=== PATIENT | female | born 1955 | race Caucasian/White ===

== ENCOUNTER 2020-01-08 07:42 | Day surgery (SDC) | payer OTHER ==
[2020-01-01 15:10] VITALS: BMI 36.8
[2020-01-08] MEDS ORDERED: BUPIVACAINE HCL/PF 0.5% (5MG/ML) 10 ML VIAL ONE (08:38)
[2020-01-08] MEDS ORDERED: LIDOCAINE HCL/PF 2% SDV 5ML VIAL ONE ×2 (08:38→08:42)
[2020-01-08] MEDS ORDERED: EPINEPHrine/PF 1 MG/1 ML (1:1,000) AMPULE ONE (08:38)
[2020-01-08] MEDS ORDERED: MIDAZOLAM HCL 2 MG/2 ML SINGLE DOSE VIAL ONE (08:41)
[2020-01-08] MEDS ORDERED: PROPOFOL 20 ML ONE (08:41)
[2020-01-08] MEDS ORDERED: ceFAZolin SODIUM 1 GM VIAL ONE (08:42)
[2020-01-08] MEDS ORDERED: ONDANSETRON 4 MG/2 ML VIAL ONE (08:42)
[2020-01-08] MEDS ORDERED: DEXAMETHASONE SOD PHOSPHATE 4 MG/1 ML VIAL ONE (08:42)
[2020-01-08] MEDS ORDERED: KETOROLAC TROMETHAMINE 30 MG/1 ML VIAL ONE (08:42)
[2020-01-08] MEDS ORDERED: ACETAMINOPHEN WITH CODEINE 300MG/30MG TABLET PO PRN (09:55)
[2020-01-08 12:23] VITALS: TEMP 97.6
[2020-01-08 12:56] VITALS: BP 132/74; PULSE 77
--- NOTE | 2020-01-08 16:17 | OP ---
DATE OF OPERATION: 01/08/2020 SURGEON: Brody Marquis DPM RN APPEALS: Jared Reyes DPM PREOPERATIVE DIAGNOSIS: Hammertoes left 2nd and 5th toes. POSTOPERATIVE DIAGNOSIS: Hammertoes left 2nd and 5th toes. PROCEDURE: Arthroplasty to the left 2nd and 5th toes. OPERATION IN DETAIL: The patient was taken to the operating room, placed on the operating table in the supine position. The usual aseptic prepping and draping were performed. No tourniquet was utilized during the case. For conciseness only 1 toe will be dictated since the same procedure was done on both digits. Attention was directed to the dorsum of the 5th toe where 2 small semielliptical incisions were placed to excise a small wedge of skin. The medial and lateral collateral ligaments were then incised. The tendon was cut in a transverse manner, the extensor tendon, and the head was delivered dorsally into the interspace of the left surgical neck. An arthroplasty removing the head of the bone was performed. The extensor tendon was reapproximated and closed with No. 4-0 Vicryl. Skin was reapproximated and closed with 5-0 nylon. The identical procedure was then performed on the 2nd toe of the left foot. A dry sterile dressing was applied to both feet using Adaptic and 4 x 4's and Chan. Patient tolerated the operative procedure and anesthesia well and was taken to the [facility] under the care of the surgical department. INOCENCIA BARTH/[id number]
--- NOTE | 2020-01-10 16:58 | PATH ---
Surgical Pathology Report Patient Name: MERY REYES Med. Rec. #: [id number] /Age/Gender: 1955 (Age: 64) / F Account: [id number] Location: [facility] Taken: 01/08/2020 Received: 01/08/2020 Reported: 01/10/2020 Physicians: Archana Marquis Specimen(s) Received A: LEFT 5TH TOE BONE B: LEFT 2ND TOE BONE AND SKIN Clinical History Hammertoes left second and fifth Final Diagnosis A. LEFT FIFTH TOE BONE, EXCISION: PORTION OF BONE AND CARTILAGE WITH FOCAL DEGENERATIVE CHANGE. B. LEFT SECOND TOE BONE AND SKIN, EXCISION: PORTION OF BONE WITH NO SIGNIFICANT PATHOLOGIC CHANGE. SEPARATE SEGMENT OF SKIN WITH HYPERKERATOSIS. Electronically Signed Acacia Sloan M.D. Gross Description A. Received in formalin labeled "left fifth toe bone," is a 0.8 x 0.5 x 0.2 cm bone fragment. The specimen is submitted in toto in one cassette, following decalcification. B. Received in formalin labeled "left second toe bone and skin," is a 1.4 x 0.4 x 0.1 cm mcgrath portion of skin. Also received within the same container is a 1.1 x 0.6 x 0.5 cm mcgrath-yellow portion of bone. The bone is bisected and the specimen is entirely submitted in one cassette, following decalcification. 01/09/2020 saudi/01/09/2020
== END 2020-01-08 11:07 | disposition home or self-care (01) ==
LOC: CANPRESDC → FASU 07:42
PROVIDERS: ATTEND Podiatrist
PROC: 0SRQ0JZ Replacement of Left Toe Phalangeal Joint with Synthetic Substitute, Open Approach (ICD-10-PCS; principal; 2020-01-08 09:11)
DX: M20.42 Other hammer toe(s) (acquired), left foot (principal)
CPT/HCPCS: 73630-TC-LT; 82962; 88304-TC; 88311-TC

== ENCOUNTER 2020-05-27 07:39 | Day surgery (SDC) | payer OTHER ==
[2020-05-20 11:36] VITALS: BMI 36.3
[2020-05-27] MEDS ORDERED: LIDOCAINE HCL 1%, 10 MG/ML (20ML VIAL) ONE (07:48)
[2020-05-27] MEDS ORDERED: BUPIVACAINE HCL/PF 0.5% (5MG/ML) 10 ML VIAL ONE (07:48)
[2020-05-27] MEDS ORDERED: MIDAZOLAM HCL 2 MG/2 ML SINGLE DOSE VIAL ONE ×2 (08:33)
[2020-05-27] MEDS ORDERED: PROPOFOL 20 ML ONE (08:38)
[2020-05-27] MEDS ORDERED: SUCCINYLCHOLINE CHLORIDE 200 MG/10 ML SYRINGE ONE (08:38)
[2020-05-27] MEDS ORDERED: BUPIVACAINE HCL/PF 0.5% (5MG/ML) 10 ML VIAL IJ ONE (08:41)
[2020-05-27] MEDS ORDERED: LIDOCAINE HCL 1%, 10 MG/ML (50 mL VIAL) INF ONE (08:41)
[2020-05-27 10:36] VITALS: TEMP 97.8
[2020-05-27 10:38] VITALS: BP 119/61; PULSE 78
== END 2020-05-27 11:05 | disposition home or self-care (01) ==
LOC: FASU 07:39
PROVIDERS: ATTEND Podiatrist
PROC: 0SRP0JZ Replacement of Right Toe Phalangeal Joint with Synthetic Substitute, Open Approach (ICD-10-PCS; principal; 2020-05-27 08:41)
DX: M20.41 Other hammer toe(s) (acquired), right foot (principal)
CPT/HCPCS: 73630-TC-RT-FY; 82962; 88304-TC; 88311-TC